=== PATIENT | female | born 1960 | race Hispanic/Latino ===

== ENCOUNTER 2024-04-30 14:22 | Emergency (ER) | payer SELFPAY | END 2024-04-30 15:20 | disposition home or self-care (01) | LOC: NAV ERS 14:22 | DX: L03.113 Cellulitis of right upper limb (principal); L02.413 Cutaneous abscess of right upper limb; I10 Essential (primary) hypertension; Z79.899 Other long term (current) drug therapy; Z55.6 Problems related to health literacy | CPT/HCPCS: 10060 ==